=== PATIENT | female | born 1950 | race Two or more races ===

== ENCOUNTER → 2017-02-02 | Outpatient (CLI) | payer MEDICARE, BC ==
[~2017-02-02] MED LIST: ALLEGRA PO; ASTELIN137 MCG INH; AZULFIDINE PO; BONIVA150 MG PO; BUTALBITAL/APAP/CAFF; BYSTOLIC PO; BYSTOLIC2.5 MG PO; CELEBREX PO; CIPRO PO; COMBIGAN OU; CYMBALTA PO; CYPROHEPTADINE H4 MG PO; FLAGYL PO; FLEXERIL PO; FLONASE16 GM; FOLIC ACID PO; FOSAMAX PO; LANSOPRAZOLE30 MG PO; LORTAB 5/500 TA1 TA2 PO; LYRICA PO; MULTI-VITAMIN1 TAB PO; PLAQUENIL200 MG PO; PREVACID PO; SYNTHROID PO; SYNTHROID0.15 MG PO; TOPROL XL PO; TRAMADOL HCL50 M1 PO; ULTRAM PO; WOMEN'S DAILY1 EACH PO; XALATAN; ZOFRAN ODT4 MG PO; ZOLOFT PO; [UNRECOGNIZED DRUG - OTHER] PO
[2017-02-02 10:40] LABS: HEMATOCRIT 40.2 % (35.0-45.0); MEAN CORPUSCULAR HEMOGLOBIN 26.6 PG (28-34); MEAN CORPUSCULAR HGB CONC 32.4 g/dL (30-36); MEAN PLATELET VOLUME 8.4 FL (6.5-11.5); RED BLOOD COUNT 4.9 X10e (3.90-5.30); RED CELL DISTRIBUTION WIDTH 16.3 % (11.0-15.5); WHITE BLOOD COUNT 8.8 X10e3 (4.0-10.5)
[2017-02-02 10:59] LABS: ALBUMIN SERUM 4.6 g/dL (3.5-5.0); BILIRUBIN,TOTAL 0.6 mg/dL (0.2-2.0); BUN/CREATININE RATIO 11.11; CALCIUM SERUM 8.9 mg/dL (8.4-10.2); CREATININE SERUM 0.9 mg/dL (0.6-1.4); GLOM FILT RATE Estimated 66.7 mL/min (>60); POTASSIUM 3.6 mmol/L (3.5-5.1); PROTEIN TOTAL SERUM 7.7 g/dL (6.0-8.3)
== END | disposition home or self-care (01) ==
LOC: SLAB 10:28
PROVIDERS: Nurse Practitioner
DX: Z51.81 Encounter for therapeutic drug level monitoring (principal); Z79.899 Other long term (current) drug therapy
CPT/HCPCS: 36415; 80053; 85027; 85651; 86140

== ENCOUNTER → 2017-06-26 | Outpatient (CLI) | payer MEDICARE, BC ==
[2017-06-26 11:50] LABS: HEMATOCRIT 37.5 % (35.0-45.0); MEAN CELL VOLUME 83.1 FL (83-96); MEAN CORPUSCULAR HEMOGLOBIN 26.6 PG (28-34); MEAN PLATELET VOLUME 8.7 FL (6.5-11.5); RED BLOOD COUNT 4.51 X10e (3.90-5.30); RED CELL DISTRIBUTION WIDTH 16.3 % (11.0-15.5); WHITE BLOOD COUNT 6.8 X10e3 (4.0-10.5)
[2017-06-26 12:11] LABS: ALBUMIN SERUM 4.5 g/dL (3.5-5.0); BILIRUBIN,TOTAL 0.6 mg/dL (0.2-2.0); CALCIUM SERUM 9.4 mg/dL (8.4-10.2); CREATININE SERUM 0.8 mg/dL (0.6-1.4); GLOM FILT RATE Estimated 76.4 mL/min (>60); POTASSIUM 3.3 mmol/L (3.5-5.1)
== END | disposition home or self-care (01) ==
LOC: SLABONLY 11:36
PROVIDERS: Nurse Practitioner
DX: M15.0 Primary generalized (osteo)arthritis (principal); M35.9 Systemic involvement of connective tissue, unspecified; Z79.899 Other long term (current) drug therapy
CPT/HCPCS: 36415; 80053; 85027; 85651; 86140